=== PATIENT | female | born 1990 | race Caucasian/White ===

== ENCOUNTER 2022-06-10 10:03 | Emergency (ER) | payer OTHER, SELFPAY ==
[2022-06-10 10:38] VITALS: BP 123/83; PULSE 95; RESP 18; TEMP 36.6; O2SAT 100
--- NOTE | 2022-06-10 11:00 | ED.URI ---
HPI - URI/Sore Throat General Chief Complaint: Upper Respiratory Infection Stated Complaint: sorethroat,bilateral ear pain Time Seen by Provider: 06/10/22 10:23 Source: patient Mode of arrival: ambulatory Limitations: no limitations History of Present Illness HPI Narrative: 32-year-old female presents to [facility] with complaints of sore throat, bilateral ear pain, body aches and chills for the past 3-4 days. Patient denies vomiting, diarrhea, shortness of breath, wheezing, cough, congestion or runny nose. Patient denies sick contacts. Patient denies recent travel. Patient is currently 7 weeks . MD elicited complaint: sore throat and other (body aches, chills) Onset (ago): day(s) (3-4) Severity: mild Able to tolerate fluids by mouth: Yes Associated symptoms: chills Related Data Home Medications Medication Instructions Recorded Confirmed levothyroxine 50 mcg tablet 50 mcg PO DAILY 06/10/22 06/10/22 Allergies Allergy/AdvReac Type Severity Reaction Status Date / Time No Known Allergies Allergy Verified 06/10/22 10:37 Review of Systems Constitutional: Constitutional: Reports chills, Reports fatigue and Denies fever(s) ENT: Denies vertigo, Denies dizziness, Denies nasal congestion and Reports sore throat Respiratory: Respiratory: Denies chest congestion, Denies cough, Denies dyspnea and Denies wheezing Gastrointestinal: Gastrointestinal: Denies abdominal pain, Denies diarrhea, Denies nausea and Denies vomiting Integumentary/Breasts: Skin/Breast: Denies rash Neurologic: Denies vertigo and Denies dizziness Allergic/Immunologic: Allergic/Immunologic: Denies lip swelling, Denies throat swelling, Denies tongue swelling and Denies wheezing PMFSH Social History Social History (Updated 06/10/22 @ 11:05 by Kylee Romero APRN) Smoking status: Never smoker Gender identity (if verbalized by the patient): Female Comments At time of signature, I agree with nursing past medical, surgical, social and family history. There is no relevant family history pertinent to the presenting complaint. Exam Const: General: healthy appearing Nutritional Appearance: well nourished Orientation/consciousness: patient oriented x3 Limitations: no limitations HENMT: Head: normal to inspection Ears: external ears normal and TM's normal bilaterally Face/Nose/Sinus: Normal external nose present and Normal nares present Face and sinus: normal facial exam and sinuses nontender Mouth: Yes Normal oral and palatal mucosa present, Yes lip normal and Yes moist mucous membranes Teeth and gingiva: dentition normal Throat: uvula midline Other: Moderate erythema noted posterior fornix. 1-2+ swelling noted bilateral tonsils with mild exudate noted. There is no peritonsillar abscess noted Neck: Neck: normal visual inspection Resp: Effort & Inspection: normal respiratory effort and not labored Auscultation: clear to auscultation bilaterally, no crackles, no rales, no rhonchi and no wheezes Cardio: Rate: regular rate Rhythm: regular rhythm Heart sounds: no murmurs Skin: General skin exam: normal color Rashes: no rashes Wounds: no wounds Psych: Affect: normal affect Attitude: cooperative Course Course Level of Care: Express Care Visit Vital Signs Vital signs: Vital Signs Temperature 36.6 C 06/10/22 10:38 Pulse Rate 95 06/10/22 10:38 Respiratory Rate 18 06/10/22 10:38 Blood Pressure 123/83 06/10/22 10:38 Pulse Oximetry 100 06/10/22 10:38 Oxygen Delivery Room Air 06/10/22 10:38 Temperature 36.6 C 06/10/22 10:38 Pulse Rate 95 06/10/22 10:38 Respiratory Rate 18 06/10/22 10:38 Blood Pressure 123/83 06/10/22 10:38 Pulse Oximetry 100 06/10/22 10:38 Oxygen Delivery Room Air 06/10/22 10:38 MDM - URI/Sore Throat MDM Narrative Medical decision making narrative: Discussed positive strep result with patient. She agrees to continue [id number] Tylenol as needed warm gu[place]upe
== END 2022-06-10 11:18 | disposition home or self-care (01) ==
PROVIDERS: Emergency Provider Nurse Practitioner Family
DX: O99.511 Diseases of the respiratory system complicating pregnancy, first trimester (principal); Z3A.01 Less than 8 weeks gestation of pregnancy; J02.0 Streptococcal pharyngitis; O99.281 Endocrine, nutritional and metabolic diseases complicating pregnancy, first trimester; E03.9 Hypothyroidism, unspecified
CPT/HCPCS: 87804; 87880; 99213; G0463